=== PATIENT | female | born 1960 | race Caucasian/White ===

== ENCOUNTER 2017-08-11 07:03 | Inpatient (IN) | payer MEDICAID ==
[~2017-08-11] VITALS: Ht 167.6 cm; Wt 87.3 kg
[2017-08-11] MEDS ORDERED: normal saline 1000ML IV soln IVB ONE ×2 (07:10→08:10)
[2017-08-11] MEDS ORDERED: normal saline 1000ml 1,000 ML IV ONE ×2 (07:10→08:07)
[2017-08-11 07:32] LABS: BASOPHILS % (AUTO) 0.2 % (0-1); EOSINOPHILS % (AUTO) 0 % (0-6); LYMPHOCYTES # (AUTO) 0.9 X10'3 (1.1-4.8); LYMPHOCYTES % (AUTO) 7.5 % (21-51); MEAN CORPUSCULAR HEMOGLOBIN 31.8 PG (27.0-31.0); MEAN CORPUSCULAR HGB CONC 34.3 % (33.0-36.5); MEAN CORPUSCULAR VOLUME 92.8 FL (78-98); MONOCYTES # (AUTO) 0.4 X10'3 (0-0.9); MONOCYTES % (AUTO) 3.1 % (2-12); NEUTROPHILS # (AUTO) 10.4 X10'3 (1.8-7.7); NEUTROPHILS % (AUTO) 89.2 % (42-75); PLATELET COUNT 176 X10'3 (140-440); RED CELL DISTRIBUTION WIDTH 13.1 % (11.5-14.5); WHITE BLOOD COUNT 11.7 X10'3 (4.5-11.0)
[2017-08-11 07:42] LABS: PARTIAL THROMBOPLASTIN TIME 30 SECONDS (22-32); PROTHROMBIN TIME 10.7 SECONDS (9.0-12.0)
[2017-08-11 07:54] LABS: ALANINE AMINOTRANSFERASE 27 U/L (12-78); ALBUMIN 3.2 G/DL (3.4-5.0); ALBUMIN/GLOBULIN RATIO 0.8 (1.1-1.5); ALKALINE PHOSPHATASE 66 IU/L (46-116); ANION GAP 13 (8-16); ASPARTATE AMINO TRANSFERASE 14 U/L (10-37); BILIRUBIN,TOTAL 1.1 MG/DL (0.1-1.0); BLOOD UREA NITROGEN 15 MG/DL (7-18); BUN/CREATININE RATIO 17.9 (6.6-38.0); CHLORIDE 98 MMOL/L (99-107); CREATININE 0.84 MG/DL (0.40-0.90); ETHANOL < 0.010 GM/DL (0.0-0.010); GLUCOSE 143 MG/DL (70-104); LIPASE 75 U/L (73-393); MAGNESIUM 1.7 MG/DL (1.5-2.4); POTASSIUM 3.3 MMOL/L (3.5-5.1); SODIUM 134 MMOL/L (135-145); TOTAL PROTEIN 7.2 G/DL (6.4-8.2); eGFR 71 ML/MIN
[2017-08-11 07:55] LABS: CLARITY,URINE Clear (Clear); COLOR,URINE Yellow (Yellow); GLUCOSE, URINE Negative (Neg); KETONES,URINE Trace mg/dl (Neg); LEUKOCYTE ESTERASE ,URINE Negative (Neg); NITRITES, URINE Negative (Neg); OCCULT BLOOD,URINE Moderate (Neg); PROTEIN,URINE 30 mg/dl (Neg)
[2017-08-11 07:57] LABS: UA COLLECTION TYPE STRAIGHT CATH
[2017-08-11 08:00] LABS: AMORPHOUS URATES 1+; BACTERIA,URINE NONE SEEN /HPF (Neg); RBC,URINE 0-2 /HPF (0-2); SQUAMOUS EPITHELIAL CELL,UR FEW /LPF (FEW); WBC,URINE NONE SEEN /HPF (0-4)
[2017-08-11] MEDS ORDERED: ipratropium/albuterol 3ml nebule NEB ONE (08:10)
[2017-08-11] MEDS ORDERED: azithromycin/NS 500mg/250ml 250 ML IV ONE (08:10)
[2017-08-11] MEDS ORDERED: CefTRIAXone 2gm/NS 100ml IVPB 100 ML IV ONE (08:10)
[2017-08-11 08:56] LABS: ABG BASE EXCESS -5.1 mmol/L (-2.0-3.0); ABG HCO3 19.5 mmol/L (22.0-26.0); ABG OXYGEN SATURATION 88.3 % (95-98); ABG PCO2 (T) 34.7 mmHg (32.0-45.0); ABG PH (T) 7.366 (7.350-7.450); ABG PO2 (T) 57.1 mmHg (83-108); ALLEN'S TEST Positive; FCOHb 0.7 % (0.5-1.5); FMetHb 0.3 % (0.3-1.12); FO2Hb 87.4 % (94-100); PATIENT TEMPERATURE 36.9; TOTAL HEMOGLOBIN 12.7 G/dl (12.0-16.0)
[2017-08-11] MEDS ORDERED: SYN0.088T PO (09:46)
[2017-08-11] MEDS ORDERED: FLUO20CA39 PO (09:46)
[2017-08-11] MEDS ORDERED: acetaminophen 325mg tablet PO PRN ×2 (09:50)
[2017-08-11] MEDS ORDERED: magnesium hydroxide 30ml (MOM) UD suspension PO PRN (09:50)
[2017-08-11] MEDS ORDERED: HYDROcodone/acetaminophen 5mg/325mg tablet PO PRN (09:50)
[2017-08-11] MEDS ORDERED: potassium Cl 40MEQ/NS 500ml 500 ML IV PRN ×2 (09:50)
[2017-08-11] MEDS ORDERED: mag hydrox/Alum hydrox/simeth 30ml oral suspension PO PRN (09:50)
[2017-08-11] MEDS ORDERED: potassium Cl 20 mEq SR tablet PO PRN (09:50)
[2017-08-11] MEDS ORDERED: albuterol 2.5 MG/3 ML nebule NEB PRN (09:50)
[2017-08-11] MEDS ORDERED: ondansetron/PF 4mg/2ml inj IV PRN (09:50)
[2017-08-11] MEDS ORDERED: IBUP-1984 PO (09:56)
[2017-08-11] MEDS: normal saline 1000ml 1,000 ML IV SCH ×2 (10:19→20:27)
[2017-08-11 11:30] VITALS: BP 130/84
[2017-08-11] MEDS: levoTHYROXINE 88mcg tablet PO SCH (11:44)
[2017-08-11] MEDS: ibuprofen tablet 400 MG TABLET PO PRN (14:02)
[2017-08-11] MEDS: potassium Cl 20 mEq SR tablet PO PRN ×2 (16:03→20:25)
[2017-08-11 19:21] VITALS: BP 119/67
[2017-08-11] MEDS ORDERED: temazepam 15mg capsule PO PRN (21:00)
[2017-08-12] VITALS: BP 107/71
[2017-08-12] MEDS: potassium Cl 20 mEq SR tablet PO PRN (04:51)
[2017-08-12] MEDS: normal saline 1000ml 1,000 ML IV SCH (04:51)
[2017-08-12 05:59] LABS: BASOPHILS % (AUTO) 0.5 % (0-1); EOSINOPHILS # (AUTO) 0.1 X10'3 (0-0.9); EOSINOPHILS % (AUTO) 1.1 % (0-6); HEMATOCRIT 32.4 % (35.0-45.0); HEMOGLOBIN 11.3 g/dl (12.0-16.0); LYMPHOCYTES # (AUTO) 1.3 X10'3 (1.1-4.8); MEAN CORPUSCULAR HEMOGLOBIN 31.9 PG (27.0-31.0); MEAN CORPUSCULAR HGB CONC 35.1 % (33.0-36.5); MEAN CORPUSCULAR VOLUME 90.9 FL (78-98); MONOCYTES # (AUTO) 0.3 X10'3 (0-0.9); MONOCYTES % (AUTO) 4.5 % (2-12); NEUTROPHILS # (AUTO) 4.6 X10'3 (1.8-7.7); NEUTROPHILS % (AUTO) 72.9 % (42-75); PLATELET COUNT 169 X10'3 (140-440); RED BLOOD COUNT 3.56 X10'6 (4.20-5.60); RED CELL DISTRIBUTION WIDTH 12.9 % (11.5-14.5); WHITE BLOOD COUNT 6.3 X10'3 (4.5-11.0)
[2017-08-12 06:12] LABS: ALBUMIN 2.7 G/DL (3.4-5.0); ANION GAP 8 (8-16); BLOOD UREA NITROGEN 10 MG/DL (7-18); CALCIUM 7.7 MG/DL (8.5-10.1); CHLORIDE 108 MMOL/L (99-107); CREATININE 0.77 MG/DL (0.40-0.90); GLUCOSE 102 MG/DL (70-104); POTASSIUM 3.8 MMOL/L (3.5-5.1); SODIUM 141 MMOL/L (135-145); TOTAL CARBON DIOXIDE 24.7 MMOL/L (24-32); eGFR 78 ML/MIN
[2017-08-12 07:55] VITALS: BP 115/71
[2017-08-12] MEDS: cefTRIAXone 1g/NS 100ml IVPB 100 ML IV SCH (08:16)
[2017-08-12] MEDS: azithromycin/NS 500mg/250ml 250 ML IV SCH (09:24)
[2017-08-12] MEDS: FLUoxetine 20mg capsule PO SCH (09:26)
[2017-08-12] MEDS: levoTHYROXINE 88mcg tablet PO SCH (09:27)
[2017-08-12] MEDS: enoxaparin 40mg/0.4ml syringe SUBCUT SCH (09:28)
[2017-08-12 11:00] VITALS: BP 106/75
[2017-08-12] MEDS: lactobacillus rhamnosus 10,000 MMU CELLS/CAPSULE PO SCH (17:28)
[2017-08-12] MEDS: ibuprofen tablet 400 MG TABLET PO PRN (17:28)
[2017-08-12 18:00] VITALS: BP 96/74
[2017-08-13] VITALS: BP 143/57
[2017-08-13] MEDS: ibuprofen tablet 400 MG TABLET PO PRN (05:26)
[2017-08-13 05:43] LABS: BASOPHILS % (AUTO) 0.6 % (0-1); EOSINOPHILS # (AUTO) 0.1 X10'3 (0-0.9); EOSINOPHILS % (AUTO) 2.8 % (0-6); HEMATOCRIT 32.4 % (35.0-45.0); HEMOGLOBIN 11.3 g/dl (12.0-16.0); LYMPHOCYTES # (AUTO) 1.6 X10'3 (1.1-4.8); LYMPHOCYTES % (AUTO) 38.7 % (21-51); MEAN CORPUSCULAR HEMOGLOBIN 32.1 PG (27.0-31.0); MEAN CORPUSCULAR HGB CONC 34.9 % (33.0-36.5); MEAN CORPUSCULAR VOLUME 91.9 FL (78-98); MEAN PLATELET VOLUME 7.2 FL (7.4-10.4); MONOCYTES # (AUTO) 0.3 X10'3 (0-0.9); MONOCYTES % (AUTO) 7.2 % (2-12); NEUTROPHILS # (AUTO) 2.1 X10'3 (1.8-7.7); NEUTROPHILS % (AUTO) 50.7 % (42-75); PLATELET COUNT 198 X10'3 (140-440); RED BLOOD COUNT 3.53 X10'6 (4.20-5.60); RED CELL DISTRIBUTION WIDTH 13.1 % (11.5-14.5); WHITE BLOOD COUNT 4.2 X10'3 (4.5-11.0)
[2017-08-13 05:51] LABS: ALBUMIN 2.7 G/DL (3.4-5.0); ANION GAP 7 (8-16); BLOOD UREA NITROGEN 10 MG/DL (7-18); BUN/CREATININE RATIO 13.7 (6.6-38.0); CALCIUM 7.9 MG/DL (8.5-10.1); CHLORIDE 108 MMOL/L (99-107); CREATININE 0.73 MG/DL (0.40-0.90); GLUCOSE 98 MG/DL (70-104); MAGNESIUM 2.2 MG/DL (1.5-2.4); POTASSIUM 4.2 MMOL/L (3.5-5.1); SODIUM 142 MMOL/L (135-145); TOTAL CARBON DIOXIDE 26.7 MMOL/L (24-32); eGFR 83 ML/MIN
[2017-08-13] MEDS: FLUoxetine 20mg capsule PO SCH (07:03)
[2017-08-13] MEDS: cefTRIAXone 1g/NS 100ml IVPB 100 ML IV SCH (07:03)
[2017-08-13] MEDS: lactobacillus rhamnosus 10,000 MMU CELLS/CAPSULE PO SCH (07:03)
[2017-08-13] MEDS: levoTHYROXINE 88mcg tablet PO SCH (07:03)
[2017-08-13] MEDS: enoxaparin 40mg/0.4ml syringe SUBCUT SCH (07:05)
[2017-08-13 07:19] VITALS: BP 136/78
[2017-08-13] MEDS: azithromycin/NS 500mg/250ml 250 ML IV SCH (08:56)
[2017-08-13] MEDS ORDERED: LACT1CAP26 PO (10:35)
[2017-08-13] MEDS ORDERED: ALBU8.5H8 INH (10:35)
[2017-08-13] MEDS ORDERED: LEVO750T46 PO (10:41)
[2017-08-13] MEDS ORDERED: levoFLOXACIN 750MG TABLET PO SCH (11:00)
[2017-08-13 11:57] VITALS: BP 150/88
== END 2017-08-13 12:50 | disposition home or self-care (01) | DRG 139 ==
LOC: ER 07:04 → EDSEX 07:04 → ED HOLD 09:48 → MED 3N 11:40
PROVIDERS: ADMIT Hospitalist; ATTEND Internal Medicine Nephrology
DX: J18.9 Pneumonia, unspecified organism (principal); J96.01 Acute respiratory failure with hypoxia; E86.0 Dehydration; E87.1 Hypo-osmolality and hyponatremia; E87.6 Hypokalemia; E03.9 Hypothyroidism, unspecified; F41.9 Anxiety disorder, unspecified; F12.90 Cannabis use, unspecified, uncomplicated; F17.210 Nicotine dependence, cigarettes, uncomplicated; M54.9 Dorsalgia, unspecified; G89.29 Other chronic pain; Z79.899 Other long term (current) drug therapy; Z98.891 History of uterine scar from previous surgery
CPT/HCPCS: 36415; 36600; 71045; 80048; 80053; 80320; 81001; 82803; 83605; 83690; 83735; 84443; 84484; 85018; 85025; 85610; 85730; 87040; 87070; 87502; 87503; 93005; 94640; 94760; 96360; 99291; J0456; J0696; J1650; J7030